=== PATIENT | male | born 1975 | race Caucasian/White ===

== ENCOUNTER 2021-11-19 23:07 | Emergency (ER) | payer OTHER ==
[~2021-11-19] VITALS: Ht 180.3 cm; Wt 100.0 kg
[2021-11-19 23:32] LABS: BASO # 0.1 K/mm3 (0.0-0.2); EOS # 0.1 K/mm3 (0.0-0.7); EOS % 1.8 % (0.0-4.0); GRAN # 2.5 K/mm3 (1.4-6.5); GRAN % 40.9 % (42.2-75.2); HEMATOCRIT 41.1 % (42.0-52.0); HEMOGLOBIN 14.4 g/dl (13.5-18.0); LYMPH # 2.9 K/mm3 (1.2-3.4); LYMPH % 47.3 % (20.0-51.0); MEAN CELL VOLUME 88 fl (80.0-100.0); MEAN CORPUSCULAR HEMOGLOBIN 31 pg (27-31); MEAN CORPUSCULAR HGB CONC 35 g/dl (33.0-37.0); MEAN PLATELET VOLUME 10.3 fl (7.4-10.4); MONO # 0.5 K/mm3 (0.1-0.6); MONO % 8.7 % (1.7-9.3); PLATELET COUNT 161 K/mm3 (130-400); RED BLOOD COUNT 4.67 M/mm3 (4.20-5.60); REDCELL DISTRIBUTION WIDTH-CV 11.7 % (11.5-14.5)
[2021-11-19] MEDS ORDERED: ATIVAN 1MG T1 MG/TAB PO (23:35)
[2021-11-19] MEDS ORDERED: NORVASC 10MG10 MG PO (23:36)
[2021-11-19] MEDS ORDERED: BENICAR40 MG PO (23:36)
[2021-11-19] MEDS ORDERED: NEURONTIN600 MG/TAB PO (23:36)
[2021-11-19 23:52] LABS: ALBUMIN 3.8 gm/dL (3.5-5.0); BILIRUBIN,TOTAL 0.6 mg/dL (0.2-1.2); CALCIUM 9.2 mg/dL (8.4-10.2); CREATININE, serum 1.17 mg/dL (0.72-1.25); POTASSIUM 3.6 mmol/L (3.5-4.5); TOTAL PROTEIN 5.9 gm/dL (6.2-8.1)
[2021-11-20 00:10] LABS: COLLECTION METHOD CLEAN CATCH
[2021-11-20 00:17] LABS: MUCOUS Present (NOT PRESENT); PH 6 (5-8); SQUAMOUS EPITHELIAL None Seen /hpf (0-10); URINE APPEARANCE Clear (CLEAR/HAZY); URINE BACTERIA None Seen /hpf (NONE SEEN); URINE BLOOD Negative (NEGATIVE); URINE COLOR Yellow (YELLOW); URINE GLUCOSE Negative (NEGATIVE); URINE KETONE Trace (NEGATIVE); URINE NITRATE Negative (NEGATIVE); URINE PROTEIN(semi-quant) 1+ (NEGATIVE); URINE RBC 0-2 /hpf (0-2); URINE UROBILINOGEN Negative (NEGATIVE)
[2021-11-20 00:23] LABS: TRICYCLIC ANTIDEPRESS URINE NEGATIVE
[2021-11-20] MEDS ORDERED: ZOFRAN 4MG T4 MG/TAB PO (01:24)
[2021-11-20 01:34] VITALS: BP 110/64; PULSE 56
== END 2021-11-20 01:35 | disposition home or self-care (01) ==
LOC: COL.ER 23:07
PROVIDERS: Emergency Medicine
DX: S09.90XA Unspecified injury of head, initial encounter (principal); S01.81XA Laceration without foreign body of other part of head, initial encounter; R55 Syncope and collapse; X58.XXXA Exposure to other specified factors, initial encounter
CPT/HCPCS: J7030

== ENCOUNTER → 2021-11-23 | Outpatient (CLI) | payer OTHER ==
[~2021-11-23] MED LIST: ATIVAN 1MG T1 MG/TAB PO; BENICAR40 MG PO; NEURONTIN600 MG/TAB PO; NORVASC 10MG10 MG PO; PEPCID 20MG TAB20 MG PO; ZOFRAN 4MG T4 MG/TAB PO
== END ==
LOC: COL.RAD 06:40
DX: M51.17 Intervertebral disc disorders with radiculopathy, lumbosacral region (principal); M48.061 Spinal stenosis, lumbar region without neurogenic claudication; M40.46 Postural lordosis, lumbar region; Z98.890 Other specified postprocedural states
CPT/HCPCS: A9575

== ENCOUNTER 2021-11-28 09:17 | Emergency (ER) | payer OTHER ==
[~2021-11-28] VITALS: Ht 180.3 cm; Wt 95.5 kg
[~2021-11-28 09:17] MED LIST changes: -PEPCID 20MG TAB20 MG PO
[2021-11-28 09:26] VITALS: TEMP 97.8
[2021-11-28 09:52] LABS: COLLECTION METHOD CLEAN CATCH
[2021-11-28 09:55] LABS: BASO % 0.5 % (0.0-2.0); EOS # 0.2 K/mm3 (0.0-0.7); GRAN # 4.3 K/mm3 (1.4-6.5); GRAN % 58.2 % (42.2-75.2); HEMOGLOBIN 15.7 g/dl (13.5-18.0); LYMPH # 2.3 K/mm3 (1.2-3.4); LYMPH % 30.7 % (20.0-51.0); MEAN CELL VOLUME 88 fl (80.0-100.0); MEAN CORPUSCULAR HEMOGLOBIN 31 pg (27-31); MEAN CORPUSCULAR HGB CONC 35 g/dl (33.0-37.0); MEAN PLATELET VOLUME 10.2 fl (7.4-10.4); MONO # 0.6 K/mm3 (0.1-0.6); MONO % 8.3 % (1.7-9.3); PLATELET COUNT 217 K/mm3 (130-400); RED BLOOD COUNT 5.11 M/mm3 (4.20-5.60); REDCELL DISTRIBUTION WIDTH-CV 11.8 % (11.5-14.5)
[2021-11-28 09:58] LABS: MUCOUS Present (NOT PRESENT); PH 6 (5-8); SQUAMOUS EPITHELIAL 0-2 /hpf (0-10); URINE APPEARANCE Hazy (CLEAR/HAZY); URINE BACTERIA None Seen /hpf (NONE SEEN); URINE BLOOD Negative (NEGATIVE); URINE COLOR Yellow (YELLOW); URINE GLUCOSE Negative (NEGATIVE); URINE KETONE Negative (NEGATIVE); URINE NITRATE Negative (NEGATIVE); URINE PROTEIN(semi-quant) Negative (NEGATIVE); URINE RBC 0-2 /hpf (0-2); URINE UROBILINOGEN Negative (NEGATIVE)
[2021-11-28 10:16] LABS: ALBUMIN 4.1 gm/dL (3.5-5.0); BILIRUBIN,TOTAL 0.6 mg/dL (0.2-1.2); CALCIUM 9.7 mg/dL (8.4-10.2); CREATININE, serum 1.06 mg/dL (0.72-1.25); POTASSIUM 4.1 mmol/L (3.5-4.5); TOTAL PROTEIN 7.1 gm/dL (6.2-8.1)
[2021-11-28] MEDS ORDERED: PEPCID 20MG TAB20 MG PO (11:01)
[2021-11-28 11:32] VITALS: BP 108/73; PULSE 60
== END 2021-11-28 11:32 | disposition home or self-care (01) ==
LOC: COL.ER 09:17
PROVIDERS: Emergency Medicine
DX: R10.13 Epigastric pain (principal); R10.31 Right lower quadrant pain; R10.32 Left lower quadrant pain; Z98.84 Bariatric surgery status; Z88.5 Allergy status to narcotic agent
CPT/HCPCS: J1170; J7030; Q9967

== ENCOUNTER 2022-01-08 09:24 | Day surgery (SDC) | payer OTHER ==
[~2022-01-08] VITALS: Ht 180.3 cm; Wt 94.3 kg
[~2022-01-08 09:24] MED LIST changes: +PEPCID 20MG TAB20 MG PO
[2022-01-08 10:48] VITALS: BP 124/92; PULSE 69; TEMP 97.7
[2022-01-08 12:20] VITALS: BP 116/78; PULSE 60; TEMP 98
--- NOTE | 2022-01-08 12:20 | NUR ---
pt to bay #5 via cart from endo room, walked to chair, pt is awake and alert, takes snack, call light in reach
[2022-01-08 12:35] VITALS: BP 102/78; PULSE 54
[2022-01-08 12:50] VITALS: BP 116/70; PULSE 61
--- NOTE | 2022-01-08 12:50 | NUR ---
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 korina lemon'anjel intact, up and dressed and discharged via w/c to car with
== END 2022-01-08 13:10 | disposition home or self-care (01) ==
LOC: SDCO 09:24
DX: K64.0 First degree hemorrhoids (principal); K29.50 Unspecified chronic gastritis without bleeding; K21.00 Gastro-esophageal reflux disease with esophagitis, without bleeding; Z98.84 Bariatric surgery status
CPT/HCPCS: J2704; J7120

== ENCOUNTER → 2022-03-04 | Outpatient (CLI) | payer OTHER ==
[~2022-03-04] MED LIST changes: +CITRUCEL POWDE850 GM PO; +DULCOLAX STOOL100 MG PO; +METAMUCIL SUGA283 GM PO
== END ==
LOC: COL.RAD 06:41
DX: N50.3 Cyst of epididymis (principal)

== ENCOUNTER → 2022-05-20 | Outpatient (CLI) | payer BC | LOC: COL.RAD 04-12 11:15 | DX: M47.812 Spondylosis without myelopathy or radiculopathy, cervical region (principal); R20.2 Paresthesia of skin ==

== ENCOUNTER 2022-08-02 08:46 | Day surgery (SDC) | payer BC ==
[~2022-08-02] VITALS: Ht 180.3 cm; Wt 96.5 kg
[2022-08-02 09:08] VITALS: BP 122/77; PULSE 75; TEMP 97.9
[2022-08-02 09:21] VITALS: BP 122/77; PULSE 75; TEMP 97.9
[2022-08-02] MEDS ORDERED: ERGOCALCIFER50000 IU PO (10:02)
[2022-08-02] MEDS ORDERED: CYANOCOBAL1000 MCG/1 IM (10:04)
[2022-08-02] MEDS ORDERED: MULTI VITAMINS1 TAB PO (10:05)
[2022-08-02] MEDS ORDERED: B COMPLEX #11 TA1 PO (10:05)
[2022-08-02] MEDS ORDERED: CEPHALEXIN500 M1 PO (14:55)
[2022-08-02] MEDS ORDERED: ULTRAM 50MG TAB50 MG PO (14:56)
[2022-08-02 16:00] VITALS: BP 114/72; PULSE 73; TEMP 97.3
[2022-08-02 16:15] VITALS: BP 121/74; PULSE 78
[2022-08-02 16:30] VITALS: BP 121/67; PULSE 69
[2022-08-02 16:45] VITALS: BP 119/66; PULSE 67
--- NOTE | 2022-08-02 17:28 | NUR ---
1600: PATIENT TO BAY 1 PER CART FROM PACU. REPORT RECEIVED FROM PACU NURSE. VS OBTAINED AND STABLE. PULSE TO OPERATIVE LIMB PALPABLE AND STRONG. PATIENT ABLE TO MOVE FINGERS. RIGHT OPERATIVE ARM WRAPPED IN ANDREA WRAP AND IN SLING ELEVATED ON 2 PILLOWS. ANDREA WRAP CLEAN/DRY/INTACT. PATIENT STATES HE HAS SOME NAUSEA AND PAIN BUT STATES IT'S TOLERABLE. TOLERATING ICE CHIPS AND REQUESTING APPLE SAUCE. CALL LIGHT IN REACH. 1615: PATIENT VS REMAIN STABLE. PULSES TO OPERATIVE ARM REMAIN STRONG. ANDREA WRAP REMAINS CLEAN/DRY/INTACT. PATIENT DENIES NAUSEA AT THIS TIME. PAIN REMAINS MANAGABLE. AT BEDSIDE. CALL LIGHT IN REACH. 1630: VS REAMINS STABLE. PULSES TO OPERATIVE ARM REMAINS STRONG. ANDREA WRAP REMAINS CLEAN/DRY/INTACT. PATIENT ABLE TO MOVE FINGERS ON OPERATIVE LIMB. CONTINUES TO TOLERATE APPLE SAUCE AND ICE CHIPS WITH NO COMPLAINTS OF NAUSEA. PAIN REMAINS TOLERABLE. AT BEDSIDE. CALL LIGHT IN REACH. 1645: VS REMAIN STABLE. PULSES TO OPERATIVE ARM REMAIN STRONG AND PALPABLE. PATIENT ABLE TO MOVE FINGERS ON OPERATIVE LIMB. NO COMPLAINTS OF NAUSEA AND PAIN REMAINS TOLERABLE AT THIS TIME. ANDREA WRAP REMAINS CLEAN/DRY/INTACT. AT BEDSIDE. CALL LIGHT IN REACH. 1700: DISCHARGE EDUCATION COMPLETED. PATIENT STATED UNDERSTANDING OF HOME AND FOLLOW UP CARE. DISCHARGE PAPERWORK GIVEN TO PATIENT.IV DC'D AT THIS TIME. PATIENT TO ASSIST WITH DRESSING. 1710: PATIENT AMBULATED WITH STEADY GAIT TO WHEELCHAIR. PATIENT OFF UNIT AT THIS TIME VIA WHEELCHAIR. PATIENT DISCHARGED TO HOME WITH PER PERSONAL VEHICLE.
== END 2022-08-02 17:10 | disposition home or self-care (01) ==
LOC: SDCO 08:46
DX: G56.21 Lesion of ulnar nerve, right upper limb (principal)
CPT/HCPCS: J0690; J1100; J1170; J1885; J2405; J2704; J3010; J7120